=== PATIENT | female | born 1995 | race Two or more races ===

== ENCOUNTER 2020-04-11 18:05 | Emergency (ER) | payer MEDICAID ==
[~2020-04-11] VITALS: Ht 157.5 cm; Wt 49.9 kg
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
--- NOTE | 2020-04-11 18:25 | NUR ---
seen and evaluated by DECORATION CHECKER with new orders noted
[2020-04-11] MEDS ORDERED: IBUPROFEN 400 MG TABLET PO ONE (18:30)
[2020-04-11] MEDS ORDERED: LORAZEPAM 1 MG TABLET PO ONE (18:30)
[2020-04-11] MEDS ORDERED: IBUPROFEN 400 MG TABLET ONE (18:36)
[2020-04-11] MEDS ORDERED: LORAZEPAM 1 MG TABLET ONE (18:36)
[2020-04-11 18:50] VITALS: BP 123/84
--- NOTE | 2020-04-11 19:33 | NUR ---
Patient discharged to home in stable condition. Written and verbal after care instructions given. Patient verbalizes understanding of instruction.pt. ambulatory with a steady gait
== END 2020-04-11 19:34 | disposition home or self-care (01) ==
LOC: ER 18:07
DX: S13.4XXA Sprain of ligaments of cervical spine, initial encounter (principal); M25.511 Pain in right shoulder; F41.9 Anxiety disorder, unspecified; V49.49XA Driver injured in collision with other motor vehicles in traffic accident, initial encounter; Y93.89 Activity, other specified; Y92.488 Other paved roadways as the place of occurrence of the external cause; Y99.8 Other external cause status